=== PATIENT | female | born 1965 | race Caucasian/White ===

== ENCOUNTER 2020-02-05 11:29 | Outpatient (CLI) | payer OTHER, SELFPAY ==
--- NOTE | 2020-02-05 11:35 | XR_ITS ---
WS: [id number] LUMBAR SPINE TECHNIQUE: 3 views of the lumbar spine CLINICAL INFORMATION: BACK PAIN LUMBAR, SCIATICA LEFT COMPARISON: None. FINDINGS: Five [id number] lumbar vertebral bodies. Disc space heights are well preserved. No compression f ractures. Mild facet arthropathy lower lumbar spine. No spondylolisthesis. Visualized sacroiliac join ts are normal. Normal visualized soft tissues. Partially visualized bowel gas pattern is normal. XR/XR lumbar spine 2-3V* [id number] IMPRESSION: Normal lumbar spine.
== END 2020-02-05 11:30 | disposition home or self-care (01) ==
LOC: RADWPI 11:33
PROVIDERS: Family Provider Electrodiagnostic Medicine; PCP Electrodiagnostic Medicine; Visit Provider Electrodiagnostic Medicine
DX: M54.16 Radiculopathy, lumbar region (principal); M54.32 Sciatica, left side
CPT/HCPCS: 72100

== ENCOUNTER 2020-03-05 15:38 | Outpatient (CLI) | payer OTHER, SELFPAY ==
--- NOTE | 2020-03-05 16:25 | MR_ITS ---
WS: [id number] MRI LUMBAR SPINE NONCONTRAST HISTORY: BACK PAIN , LUMBAR WITH RADICULOPATHY, RIGHT leg pain for 2 months. COMPARISON: None available. TECHNIQUE: Sagittal and axial multisequence imaging is submitted. Degenerative disc disease and spondylitic changes throughout the cervical and thoracic spine. Mild in crease in thoracic kyphosis. Normal lumbar alignment. Mild disc desiccation at L4-5 and L5-S1. No marrow edema or fracture. Conus terminates and ends at the mid L3 level. L1-L2: Normal. L2-L3: Mild annular disc bulging and facet arthritis. Mild narrowing of the foramen. L3-L4: Mild annular disc bulging. Moderate ligamentum flavum disease and facet arthritis. Mild bilate ral foraminal stenosis, LEFT greater than RIGHT. L4-L5: There is a large mixed signal mass centered to the RIGHT of midline extending into the subarti cular recess. This mass extends slightly into the facet joint. Mass extends over length of 2.0 cm and transversely by 1.0 cm. This is adjacent to an abnormal facet joint with increased fluid. There is m ass effect and displacement upon the thecal sac. There is also degenerative disc disease and disc bul ging. Effacement of CSF within the thecal sac with moderate central and bilateral foraminal stenosis. L5-S1: Facet joint arthritis is mild without significant stenosis. Paravertebral soft tissues are negative. MR/MR lumbar spine wo con* [id number] IMPRESSION: 1. Mixed signal mass at the L4-5 disc level extends into the RIGHT subarticula r recess with significant mass effect upon the thecal sac and the L5 nerve root s. Mass measures 2.0 x 1.0 cm and is most likely a hemorrhagic synovial facet c yst. Consider follow-up MRI lumbar spine imaging with contrast for complete leyda luation. 2. Moderate central and bilateral foraminal stenosis with severe RIGHT subarti cular recess stenosis at the L4-5 level. 3. Mild bilateral foraminal stenosis at L2-3 and L3-4. 4. Low-lying conus ends at L3.
== END 2020-03-05 15:39 | disposition home or self-care (01) ==
LOC: RADSHAW 15:41
PROVIDERS: PCP Electrodiagnostic Medicine; Visit Provider Family Medicine
DX: M54.16 Radiculopathy, lumbar region (principal); M48.061 Spinal stenosis, lumbar region without neurogenic claudication
CPT/HCPCS: 72148

== ENCOUNTER 2020-03-18 07:54 | Outpatient (CLI) | payer OTHER, SELFPAY ==
--- NOTE | 2020-03-18 07:57 | MR_ITS ---
WS: [id number] MRI LUMBAR SPINE WITH CONTRAST. HISTORY: LUMBAR EPIDURAL MASS, BACK PAIN LUMBAR W/RADICULOPATHY COMPARISON: 03/05/2020 noncontrast MRI. TECHNIQUE: Sagittal and axial multisequence imaging is submitted. Study performed with [employer]. Study is performed in conjunction with the prior noncontrast MRI 03/05/2020. Again noted is a cystic m ass closely associated with the RIGHT facet joint of L4-5 with extension into the canal. This mass ex tends over length of 2.1 cm x 1.4 x 1.2 cm. Significant mass effect upon the thecal sac and the nerve roots. Significant mass effect upon the L4 and L5 nerve roots on the RIGHT. Peripheral low signal on the noncontrast T2 sequence. There is variable signal on the unenhanced study. On the postcontrast s tudy there is mild peripheral enhancement but the mass itself centrally does not enhance. L4-5 facet joints demonstrate moderate facet arthropathy with increase fluid. MR/MR lumbar spine w con [id number] IMPRESSION: 1. Complex peripherally enhancing, extradural mass measures 2.1 x 1.4 x 1.2 cm associated with the RIGHT subarticular recess and facet joint of L4-5. Mild pe ripheral enhancement. I favor this is probably a hemorrhagic synovial cyst. Joao wannoma or meningioma would normally demonstrate more enhancement. There is ass ociated facet joint disease with the mass extending towards the RIGHT L4-5 face t joint. 2. Significant mass effect and stenosis of the L4-5 subarticular recess and ce ntral canal at this level due to the mass.
== END 2020-03-18 07:55 | disposition home or self-care (01) ==
LOC: RADSHAW 07:55
PROVIDERS: PCP Electrodiagnostic Medicine; Visit Provider Electrodiagnostic Medicine
DX: M53.86 Other specified dorsopathies, lumbar region (principal); M54.16 Radiculopathy, lumbar region; M48.061 Spinal stenosis, lumbar region without neurogenic claudication
CPT/HCPCS: 72149; A9579

== ENCOUNTER → 2021-12-23 15:52 | Outpatient (BNVA) | payer OTHER, SELFPAY | PROVIDERS: Visit Provider Family Medicine Adult Medicine | DX: R19.4 Change in bowel habit (principal); R10.10 Upper abdominal pain, unspecified; G89.29 Other chronic pain; Z83.3 Family history of diabetes mellitus; K21.9 Gastro-esophageal reflux disease without esophagitis; R19.8 Other specified symptoms and signs involving the digestive system and abdomen | CPT/HCPCS: 80053; 82150; 83036; 83690; 84443; 85025 ==

== ENCOUNTER 2022-01-04 06:42 | Outpatient (CLI) | payer OTHER, SELFPAY ==
--- NOTE | 2022-01-04 07:00 | US_ITS ---
WS: [id number] Complete ABDOMINAL ULTRASOUND HISTORY: Chronic abdominal pain COMPARISON: 11/30/2017 renal ultrasound Liver: 12.3 cm in length. Liver is normal size and echogenicity with no mass or intrahepatic dilatati on. Portal Vein: Normal hepatopetal flow with monophasic waveform. Gallbladder: Normally distended with no gallstones, wall thickening or pericholecystic fluid. Gallbladder wall thickness: 0.2 cm. Pancreas: Normal size and echogenicity. CBD: 0.3 cm. Right kidney: 9.2 cm x 5.3 cm x 4.2 cm. No mass, cortical thickening or hydronephrosis. Left kidney: 11.9 cm x 6.7 cm x 5.2 cm. No mass, cortical thickening or hydronephrosis. Spleen: Normal size and echogenicity. Abdominal aorta and IVC are within normal limits. No ascites. US/US abdomen complete* [id number] IMPRESSION: Normal complete abdomen ultrasound.
== END 2022-01-04 06:43 | disposition home or self-care (01) ==
LOC: RAD 06:43
PROVIDERS: Visit Provider Family Medicine Adult Medicine
DX: R10.10 Upper abdominal pain, unspecified (principal); G89.29 Other chronic pain
CPT/HCPCS: 76700

== ENCOUNTER → 2022-09-10 14:42 | Outpatient (BNVA) | payer OTHER, SELFPAY | PROVIDERS: Visit Provider Nurse Practitioner Family | DX: J06.9 Acute upper respiratory infection, unspecified (principal) | CPT/HCPCS: 87400 ==

== ENCOUNTER → 2022-12-08 11:43 | Outpatient (BNVA) | payer OTHER, SELFPAY | PROVIDERS: PCP Family Medicine; Visit Provider Family Medicine | DX: Z00.00 Encounter for general adult medical examination without abnormal findings (principal); Z12.11 Encounter for screening for malignant neoplasm of colon; J32.9 Chronic sinusitis, unspecified; Z76.89 Persons encountering health services in other specified circumstances | CPT/HCPCS: 80053; 80061; 83036 ==

== ENCOUNTER 2023-02-11 10:39 | Outpatient (CLI) | payer OTHER, SELFPAY ==
--- NOTE | 2023-02-11 11:00 | US_ITS ---
WS: [id number] ULTRASOUND ABDOMEN LIMITED CLINICAL INFORMATION: postprandial abd pain nausea COMPARISON: Ultrasound January 04, 2022 FINDINGS: Liver Size: Normal. Craniocaudal length: 14.1 cm. Echogenicity: Normal. Surface nodularity: None. Mass (size and location): Tiny incidental RIGHT hepatic cyst measuring 8 mm Bile ducts Intrahepatic ducts: Normal. Common bile duct diameter: 0.5 cm. Gallbladder Normal. Gallstones: None. Gallbladder sludge: None. Gallbladder wall thickening: None. Pericholecystic fluid: None. Sonographic Amato sign: Absent. Pancreas Normal as visualized. Right kidney: Normal. Hydronephrosis: None. Size: 9.8 cm x 5.6 cm x 3.6 cm. Abdominal aorta and IVC Visualized portions are normal. Ascites: None. US/US abdomen limited [id number] IMPRESSION: 1. Normal abdominal ultrasound.
== END 2023-02-11 10:40 | disposition home or self-care (01) ==
PROVIDERS: PCP Family Medicine; Visit Provider Family Medicine
DX: R10.13 Epigastric pain (principal); R11.0 Nausea
CPT/HCPCS: 76705

== ENCOUNTER → 2023-06-09 10:17 | Outpatient (BNVA) | payer OTHER, SELFPAY | PROVIDERS: PCP Family Medicine; Visit Provider Family Medicine | DX: R10.9 Unspecified abdominal pain (principal); R53.1 Weakness; R11.0 Nausea; R10.13 Epigastric pain; R20.2 Paresthesia of skin | CPT/HCPCS: 80053; 82607; 83690; 83735; 84443; 85025 ==

== ENCOUNTER → 2023-10-13 08:30 | Outpatient (BNVA) | payer OTHER, SELFPAY | PROVIDERS: PCP Family Medicine; Visit Provider Family Medicine | DX: R30.0 Dysuria (principal) | CPT/HCPCS: 81000 ==

== ENCOUNTER → 2023-10-26 12:26 | Outpatient (BNVA) | payer OTHER, SELFPAY | PROVIDERS: PCP Family Medicine; Visit Provider Family Medicine | DX: Z01.818 Encounter for other preprocedural examination (principal); R10.9 Unspecified abdominal pain | CPT/HCPCS: 80053; 81000; 83690; 85025 ==

== ENCOUNTER 2023-11-01 13:03 | Outpatient (CLI) | payer OTHER, SELFPAY ==
--- NOTE | 2023-11-01 13:09 | XR_ITS ---
WS: [id number] KUB [id number] REASON FOR EXAM: left flank pain, r/o kidney stone FINDINGS: 3 x 5 mm calcification in the mid left pelvis. Unusual appearance for urinary tract calculus however this calcification was not present on the previous examination of 02/05/2020. There was a small calcif ication in this location on the previous examination. The current calcification in the left pelvis is not identifiable within the left kidney on 02/05/2020. IMPRESSION: Left pelvic calcification as above. Radiographic findings are not consistent for left ureteral calcul us. If the patient has hematuria CT scan of the abdomen and pelvis would be helpful as clinically war ranted.
== END 2023-11-01 13:04 | disposition home or self-care (01) ==
PROVIDERS: PCP Family Medicine; Visit Provider Family Medicine
DX: R10.9 Unspecified abdominal pain (principal); R93.5 Abnormal findings on diagnostic imaging of other abdominal regions, including retroperitoneum
CPT/HCPCS: 74018

== ENCOUNTER 2023-11-06 14:47 | Outpatient (CLI) | payer OTHER, SELFPAY ==
[2023-11-06] MEDS: iohexol 350 mg/mL 500 mL Btl (per mL) IV (15:10)
--- NOTE | 2023-11-06 15:15 | CT_ITS ---
WS: [id number] CT ABDOMEN AND PELVIS WITH CONTRAST HISTORY: left-sided pain, calcification on XR not c/w kidney stone TECHNIQUE: Imaging performed of the abdomen and pelvis with IV contrast. Single phase imaging of the abdomen. Coronal and sagittal reformats are submitted. All CT scans at [facility] use at [address] one of these dose optimization techniques: automated exposure control; mA and/or kV adjustment per patient size (includes targeted exams where dose is matched to clinical indication); or iterative re construction. IV CONTRAST: Omnipaque 350; 100 mL IV. Oral contrast: No DLP: 402.51 mGy.cm COMPARISON: None available. Lower thorax: 3 mm noncalcified nodule LEFT lower lobe. Heart is normal size. No hiatal hernia. Liver/biliary system: Mild heterogeneity within the liver. No bile duct dilatation. Low-attenuation i n the central liver is probably an area of hepatic sparing. Gallbladder: Mildly contracted. No bile duct dilatation. Pancreas: Normal size pancreas and pancreatic duct. No adjacent inflammation. Spleen: Normal size spleen. No mass or infarct. Adrenal glands: Normal. Right kidney: Normal. Left kidney: Normal. Aorta: Normal. Lymphadenopathy: None. Free fluid: None. GI tract: Unremarkable. No obstruction or appendicitis. There are a few distal colonic diverticula wi thout acute diverticulitis. Abdominal wall: Unremarkable abdominal wall. No hernia. Pelvis: No free fluid or adenopathy within the pelvis. Prior hysterectomy. Pelvic phleboliths. Bones: Posterior lumbar fusion at L4-5. IMPRESSION: 1. No renal obstruction or perinephric stranding. No calcifications. 2. Normal appendix. 3. There are a few scattered distal colonic diverticula without acute diverticulitis.
== END 2023-11-06 14:48 | disposition home or self-care (01) ==
LOC: RAD 14:47
PROVIDERS: PCP Family Medicine; Visit Provider Family Medicine
DX: R10.9 Unspecified abdominal pain (principal); R93.5 Abnormal findings on diagnostic imaging of other abdominal regions, including retroperitoneum
CPT/HCPCS: 74177; Q9967

== ENCOUNTER → 2024-01-08 11:04 | Outpatient (BNVA) | payer OTHER, SELFPAY | PROVIDERS: PCP Family Medicine; Visit Provider Family Medicine | DX: R39.9 Unspecified symptoms and signs involving the genitourinary system (principal) | CPT/HCPCS: 81000 ==

== ENCOUNTER → 2024-02-24 15:58 | Outpatient (BNVA) | payer OTHER, SELFPAY | PROVIDERS: PCP Family Medicine; Visit Provider Emergency Medicine | DX: S49.92XA Unspecified injury of left shoulder and upper arm, initial encounter (principal); X58.XXXA Exposure to other specified factors, initial encounter | CPT/HCPCS: 73030 ==

== ENCOUNTER → 2024-03-27 09:43 | Outpatient (BNVA) | payer OTHER, SELFPAY | PROVIDERS: PCP Family Medicine; Visit Provider Family Medicine | DX: R10.9 Unspecified abdominal pain (principal) | CPT/HCPCS: 87338 ==

== ENCOUNTER → 2024-04-01 15:21 | Outpatient (BNVA) | payer OTHER, SELFPAY | PROVIDERS: PCP Family Medicine; Visit Provider Family Medicine | DX: R10.9 Unspecified abdominal pain (principal) | CPT/HCPCS: 82784; 83516; 86003; 86008 ==

== ENCOUNTER → 2025-01-20 15:36 | Outpatient (BNVA) | payer OTHER, SELFPAY | PROVIDERS: PCP Family Medicine; Visit Provider Family Medicine | DX: B00.1 Herpesviral vesicular dermatitis (principal); L85.3 Xerosis cutis | CPT/HCPCS: 80053; 84443; 84630; 85025 ==

== ENCOUNTER → 2025-05-19 13:21 | Outpatient (BNVA) | payer OTHER, SELFPAY | PROVIDERS: PCP Family Medicine; Visit Provider Family Medicine | DX: Z91.018 Allergy to other foods (principal) | CPT/HCPCS: 86003; 86008 ==

== ENCOUNTER → 2025-07-15 09:25 | Outpatient (BNVA) | payer OTHER, SELFPAY | PROVIDERS: PCP Family Medicine; Visit Provider Family Medicine | DX: L98.8 Other specified disorders of the skin and subcutaneous tissue (principal) | CPT/HCPCS: 88304 ==